=== PATIENT | female | born 1995 | race Caucasian/White ===

== ENCOUNTER 2017-01-01 18:37 | Emergency (ER) | payer MEDICAID, OTHER ==
[~2017-01-01] VITALS: Ht 165.1 cm; Wt 67.4 kg
[2017-01-01 18:51] VITALS: Ht 165.1 cm; Wt 67.4 kg
[2017-01-01] MEDS ORDERED: KETOROLAC 30 MG INJ IM STA (21:21)
[2017-01-01] MEDS ORDERED: NAPR-260 PO (21:24)
[2017-01-01] MEDS ORDERED: CYCL-319 PO (21:24)
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
== END 2017-01-01 21:42 | disposition home or self-care (01) ==
LOC: FTE 18:37
DX: S14.109D Unspecified injury at unspecified level of cervical spinal cord, subsequent encounter (principal); S16.1XXD Strain of muscle, fascia and tendon at neck level, subsequent encounter; W22.8XXD Striking against or struck by other objects, subsequent encounter
CPT/HCPCS: 96372; J1885; Z7502

== ENCOUNTER 2018-02-16 22:45 | Emergency (ER) | payer MEDICAID ==
[~2018-02-16] VITALS: Wt 70.2 kg
[~2018-02-16 22:45] MED LIST: CYCL10TA7 PO; NAPR-985 PO
--- NOTE | 2018-02-16 23:59 | ERD ---
ER Documentation Chief Complaint Chief Complaint BIB SELF, CC: BREAST PAIN, BILATERAL, +DISCHARGE, X 2 MONTHS HPI This is a 22-year-old female presents emergency department with complaints of bilateral breast pain that is on and off for about 2 months. Also stated that sometimes she sees clear discharge. Sexually active with one partner only. Patient is requesting test and ultrasound of the breast. Stating that her mom has history of cancer. LMP: Stated that he was 3 weeks ago. A0. Denies headache, head injury, loss of consciousness, dizziness, neck pain, neck stiffness, throat pain, difficulty swallowing, difficulty breathing lying flat, shoulder pain, chest pain, back pain, abdominal pain, nausea, vomiting, constipation, diarrhea, urinary symptoms, or possibility being , loss of bowel and bladder control, trauma, injury, falls, difficulty walking due to pain, numbness or tingling sensation, calf pain, recent travel, recent major surgery in the last 3 weeks, calf pain, recent long travel, recent exposure to any illness, recent antibiotic use in the last 3 months, fever, chills, seizures. Past medical history: Asthma. Surgical history: Right bunion. Social: Denies smoking, use of alcoholic beverages, use of illegal drugs. ROS All systems reviewed and are negative except as per history of present illness. Medications Home Meds Active Scripts Hydrocodone/Acetaminophen ([place] 5-325 Tablet) 1 Each Tablet, 1 TAB PO Q6H PRN for PAIN, #7 TAB Prov:PASILABAN,ALVINAR F 02/17/18 Ibuprofen* (Motrin*) 800 Mg Tab, 800 MG PO Q6H PRN for PAIN AND OR ELEVATED TEMP, #20 TAB Prov:PASILABAN,ALVINAR F 02/17/18 Cyclobenzaprine Hcl* (Cyclobenzaprine Hcl*) 10 Mg Tablet, 10 MG PO TID, #20 TAB Prov:NANCY TONY PA-C 01/01/17 Naproxen* (Naprosyn*) 500 Mg Tablet, 500 MG PO BID PRN for PAIN AND/OR INFLAMMATION, #30 TAB Prov:NANCY TONY PA-C 01/01/17 Allergies Allergies: Uncoded Allergies: NO KNOWN ALLERGES (Allergy, Mild, 01/22/13) PMhx/Soc History of Surgery: No Anesthesia Reaction: No Hx Neurological Disorder: No Hx Respiratory Disorders: No Hx Cardiac Disorders: No Hx Psychiatric Problems: No Hx Miscellaneous Medical Probl: No Hx Alcohol Use: No Hx Substance Use: No Hx Tobacco Use: No Physical Exam Vitals Vital Signs Date Temp Pulse Resp B/P (MAP) Pulse Ox O2 O2 Flow FiO2 Time Delivery Rate 02/17/18 98.9 86 20 110/66 99 Room Air 02:25 (81) 02/16/18 98.3 81 19 129/64 100 22:47 (85) Physical Exam Const: No acute distress Head: Atraumatic Eyes: Normal Conjunctiva ENT: Normal External Ears, Nose and Mouth. Neck: Full range of motion. No meningismus. Resp: Clear to auscultation bilaterally. Examined with female art handler, Cristiane ZIMMER. Chest area: No vesicular lesions. Bilateral breast: Nipples are intact. No discharge. No bleeding. No swelling/discoloration. Cardio: Regular rate and rhythm, no murmurs Abd: Soft, non tender, non distended. Normal bowel sounds Skin: No petechiae or rashes Back: No midline or flank tenderness Ext: No cyanosis, or edema Neur: Awake and alert Psych: Normal Mood and Affect Results 24 hrs Laboratory Tests Test 02/17/18 00:05 02/17/18 00:33 Urine Color YELLOW Urine Clarity SLIGHTLY CLOUDY Urine pH 7.0 Urine Specific [place] 1.026 Urine Ketones NEGATIVE mg/dL Urine Nitrite NEGATIVE mg/dL Urine Bilirubin NEGATIVE mg/dL Urine Urobilinogen 2+ mg/dL Urine Leukocyte Esterase TRACE Arik/ul Urine Microscopic RBC 1 /HPF Urine Microscopic WBC 2 /HPF Urine Squamous Epithelial Cells FEW /HPF Urine Bacteria FEW /HPF Urine Mucus FEW /HPF Urine Hemoglobin NEGATIVE mg/dL Urine Glucose NEGATIVE mg/dL Urine Total Protein NEGATIVE mg/dl POC Beta HCG, Qualitative NEGATIVE Current Medications Medications Dose Sig/Lee Start Time Status Last (Trade) Ordered Route PRN Stop Time Admin Dose Reason Admin Ibuprofen 800 mg ONCE ONCE 02/17/18 DC (Motrin) PO 02:00 02/17/18 02:04 1 tab ONCE ONCE 02/17/18 DC 02/17/18 Acetaminophen PO 02:30 02:10 / 02/17/18 Hydrocodone 02:30 Bitart ([place] (5/325)) Procedures/MDM Diagnostic tests: POC urine : Negative. Urinalysis: Reviewed. Culture urine: Sent. Breast ultrasound: Mildly dilated ducts bilaterally. Otherwise unremarkable examination. Recommendation: Clinical evaluation and management is recommended. BI-RADS 2 benign. Treatment: Motrin p.o. Re-evaluation: Denies pain. Not in acute respiratory distress. Differential diagnosis I have low suspicion for cellulitis, deep space infection. Final diagnosis: Breast pain. Prescription: Motrin. Follow-up with PCP in the next 24-48 hours. Patient was advised to have her worm farmer do a mammogram. Follow-up with worm farmer in the next 24-48 hours. Come back here in the emergency department for any new symptoms or any worsening symptoms. All questions and concerns were answered. Patient and family members verbalized understanding and agreed with plan of care. Hemodynamically stable on discharge. Departure Diagnosis: Primary Impression: Breast pain Condition: Stable Additional Instructions: Follow-up with PCP in the next 24-48 hours. Patient was advised to have her worm farmer do a mammogram. Follow-up with worm farmer in the next 24-48 hours. Come back here in the emergency department for any new symptoms or any worsening symptoms. HODAN CHARLES Feb 16, 2018 23:59
[2018-02-17] MEDS ORDERED: IBUPROFEN 800 MG TAB PO ONE (02:00)
[2018-02-17] MEDS ORDERED: IBUP800T48 PO (02:01)
[2018-02-17] MEDS ORDERED: HYDR-4011 PO (02:04)
[2018-02-17 02:25] VITALS: BP 110/66; PULSE 86; RESP 20
[2018-02-17] MEDS ORDERED: HYDROCODONE/APAP (5/325) TAB PO ONE (02:30)
== END 2018-02-17 02:27 | disposition home or self-care (01) ==
LOC: FTE 22:45
DX: N64.4 Mastodynia (principal); J45.909 Unspecified asthma, uncomplicated
CPT/HCPCS: 76641; 81001; 81025; 87086; Z7502; Z7610

== ENCOUNTER 2018-03-29 15:44 | Emergency (ER) | payer MEDICAID ==
[~2018-03-29] VITALS: Ht 160 cm; Wt 62.0 kg
[~2018-03-29 15:44] MED LIST changes: +HYDR-4011 PO; +IBUP800T48 PO
[2018-03-29 15:51] VITALS: Ht 160 cm; Wt 62.0 kg
[2018-03-29] MEDS ORDERED: ACETAMINOPHEN 325 MG TAB PO STA (16:37)
[2018-03-29] MEDS ORDERED: ACET325T33 PO (18:07)
[2018-03-29 18:32] VITALS: BP 115/62; PULSE 77; RESP 18
--- NOTE | 2018-03-30 21:46 | ERD ---
ER Documentation Chief Complaint Chief Complaint 10 weeks having cramping and abdoinal pain HPI 22-year-old female with no significant past medical history who is , last menstrual cycle of 02/02/2018 presenting to the emergency department complaining of bilateral suprapubic cramping for the past 3 days. Pain is rated 7/10 in severity. She tried no medication for relief of symptoms. She denies any vaginal bleeding. Her TANK SETTER HELPER physician is Dr. Springer. No other symptoms reported at this time. ROS All systems reviewed and are negative except as per history of present illness. Medications Home Meds Active Scripts Acetaminophen* (Tylenol*) 325 Mg Tablet, 2 TAB PO Q6 PRN for PAIN AND OR ELEVATED TEMP, #20 TAB Prov:TERRANCE GRAY PA-C 03/29/18 Hydrocodone/Acetaminophen ([place] 5-325 Tablet) 1 Each Tablet, 1 TAB PO Q6H PRN for PAIN, #7 TAB Prov:PASILABAN,ALVINAR F 02/17/18 Ibuprofen* (Motrin*) 800 Mg Tab, 800 MG PO Q6H PRN for PAIN AND OR ELEVATED TEMP, #20 TAB Prov:PASILABAN,KLAR F 02/17/18 Cyclobenzaprine Hcl* (Cyclobenzaprine Hcl*) 10 Mg Tablet, 10 MG PO TID, #20 TAB Prov:NANCY TONY PA-C 01/01/17 Naproxen* (Naprosyn*) 500 Mg Tablet, 500 MG PO BID PRN for PAIN AND/OR INFLAMMATION, #30 TAB Prov:NANCY TONY PA-C 01/01/17 Allergies Allergies: Uncoded Allergies: NO KNOWN ALLERGES (Allergy, Mild, 01/22/13) PMhx/Soc Medical and Surgical Hx: pt denies Medical Hx, pt denies Surgical Hx History of Surgery: No Anesthesia Reaction: No Hx Neurological Disorder: No Hx Respiratory Disorders: No Hx Cardiac Disorders: No Hx Psychiatric Problems: No Hx Miscellaneous Medical Probl: No Hx Alcohol Use: No Hx Substance Use: No Hx Tobacco Use: No Smoking Status: Never smoker FmHx Family History: No diabetes Physical Exam Vitals Vital Signs Date Temp Pulse Resp B/P (MAP) Pulse Ox O2 O2 Flow FiO2 Time Delivery Rate 03/29/18 98.0 77 18 115/62 99 Room Air 18:32 (79) 03/29/18 97.8 95 18 110/63 99 15:51 (79) Physical Exam Const: No acute distress Head: Atraumatic Eyes: Normal Conjunctiva ENT: Normal External Ears, Nose and Mouth. Neck: Full range of motion. No meningismus. Resp: Clear to auscultation bilaterally Cardio: Regular rate and rhythm, no murmurs Abd: Soft, non tender, non distended. Normal bowel sounds. Mild tenderness palpation of the bilateral suprapubic region. No rebound tenderness or guarding. No McBurney's point tenderness. Skin: No petechiae or rashes Back: No midline or flank tenderness Ext: No cyanosis, or edema Neur: Awake and alert Psych: Normal Mood and Affect Result Diagram: 03/29/181644 Results 24 hrs Laboratory Tests Test 03/29/18 16:34 03/29/18 16:35 03/29/18 16:45 Bedside Urine pH (LAB) 7.0 Bedside Urine Protein (LAB) Trace Bedside Urine Glucose (UA) Negative Bedside Urine Ketones (LAB) Negative Bedside Urine Blood Negative Bedside Urine Nitrite (LAB) Negative Bedside Urine Leukocyte Esterase (L Negative POC Beta HCG, Qualitative POSITIVE White Blood Count 6.6 10^3/ul Red Blood Count 4.56 10^6/ul Hemoglobin 13.7 g/dl Hematocrit 40.4 % Mean Corpuscular Volume 88.6 fl Mean Corpuscular Hemoglobin 30.0 pg Mean Corpuscular Hemoglobin Concent 33.9 g/dl Red Cell Distribution Width 11.7 % Platelet Count 296 10^3/UL Mean Platelet Volume 9.0 fl Immature Granulocytes % 0.500 % Neutrophils % 56.0 % Lymphocytes % 29.7 % Monocytes % 5.0 % Eosinophils % 8.3 % Basophils % 0.5 % Nucleated Red Blood Cells % 0.0 /100WBC Immature Granulocytes # 0.030 10^3/ul Neutrophils # 3.7 10^3/ul Lymphocytes # 2.0 10^3/ul Monocytes # 0.3 10^3/ul Eosinophils # 0.6 10^3/ul Basophils # 0.0 10^3/ul Nucleated Red Blood Cells # 0.0 10^3/ul Urine Color YELLOW Urine Clarity CLEAR Urine pH 6.0 Urine Specific [place] 1.025 Urine Ketones NEGATIVE mg/dL Urine Nitrite NEGATIVE mg/dL Urine Bilirubin NEGATIVE mg/dL Urine Urobilinogen NEGATIVE mg/dL Urine Leukocyte Esterase NEGATIVE Arik/ul Urine Hemoglobin NEGATIVE mg/dL Urine Glucose NEGATIVE mg/dL Urine Total Protein NEGATIVE mg/dl Beta HCG, Quantitative 4060.3 mIU/ml Current Medications Medications Dose Sig/Lee Start Time Status Last (Trade) Ordered Route PRN Stop Time Admin Dose Reason Admin 650 mg ONCE STAT 03/29/18 DC 03/29/18 Acetaminophen PO 16:37 03/29/18 16:49 (Tylenol 16:38 Tab) [place] [address] Radiology Main Line: [phone] DIAGNOSTIC IMAGING REPORT Patient: JORGE VALDEZ : 1995 Age: 22 Sex: F MR #: [id number] DOS: 03/29/18 1637 Ordering MD: TERRANCE GRAY PA-C Location: [facility] Room/Bed: PROCEDURE: US OB 1st trimester CLINICAL INDICATION: pelvic pain TECHNIQUE: Transabdominal and transvaginal views of the pelvis are available for review. COMPARISON: No prior studies are available for comparison. FINDINGS: The uterus measures 8.5 x 3.8 cm. An oval fluid collection is identified appropriately positioned within the uterus. There is an embryo present. There is a yolk sac identified. The crown-rump length measures 0.2 cm, corresponding to a gestational age of 5 weeks and 3 days. The heart rate is not identified. There is no subchorionic hemorrhage identified. The ovaries are normal in size and echogenicity with normal Doppler flow in bot h. The right ovary measures 3.0 x 1.7 x 2.6 cm. The left ovary measures 3.1 x 1.9 x 3.8 cm. No adnexal masses. There is no free fluid. IMPRESSION: Intrauterine of uncertain viability. Recommend repeat ultrasound in two weeks. RPTAT: AA Physician Layne Date Time Electronically viewed and signed by Physician Layne on 03/29/2018 17:38 RB/ CC: TERRANCE GRAY PA-C [id number] Procedures/MDM 22-year-old female presenting to the emergency department complaining of bilateral suprapubic pain. She is approximately 5 weeks . Ultrasound showed an intrauterine of uncertain viability. The full report interpreted by the radiologist may be viewed above. Patient's beta hCG was 4060. Patient was administered Tylenol in the department with good response. Patient was informed of all results in the department and she understood and agreed with the diagnosis, plan, need for follow-up, return precautions. I did explicitly advised the patient that she will need follow-up within the next 48 hours here or with her TANK SETTER HELPER physician for repeat testing. She demonstrated good understanding. Her questions and concerns were addressed prior to discharge. Patient should return to the department immediately for any new or worsening or concerning symptoms. Departure Diagnosis: Primary Impression: Pelvic pain affecting Trimester: first trimester Qualified Codes: O26.891 - Other specified related conditions, first trimester; R10.2 - Pelvic and perineal pain Condition: Fair Patient Instructions: Possible Miscarriage (Threatened ) Referrals: [facility] YOU HAVE RECEIVED A MEDICAL SCREENING EXAM AND THE RESULTS INDICATE THAT YOU DO NOT HAVE A CONDITION THAT REQUIRES URGENT TREATMENT IN THE EMERGENCY DEPARTMENT. FURTHER EVALUATION AND TREATMENT OF YOUR CONDITION CAN WAIT UNTIL YOU ARE SEEN IN YOUR DOCTORS OFFICE WITHIN THE NEXT 1-2 DAYS. IT IS YOUR RESPONSIBILITY TO MAKE AN APPOINTMENT FOR FOLOW-UP CARE. IF YOU HAVE A PRIMARY DOCTOR --you should call your primary doctor and schedule an appointment IF YOU DO NOT HAVE A PRIMARY DOCTOR YOU CAN CALL OUR PHYSICIAN REFERRAL HOTLINE AT IF YOU CAN NOT AFFORD TO SEE A PHYSICIAN YOU CAN CHOSE FROM THE FOLLOWING [facility] [address] [facility] [address] [facility]. [facility] [address] [facility] [address] [facility] [address] [facility] [facility] [address] TANK SETTER HELPER [place] [address] [facility] [address] [place] [address]USLEME [address]IM [address] [place] [address] [address] [address] [place] [address] [address], [facility] [address] [facility], [address] [address] [address] [facility] [address] [place] [address] [facility] [address] [place] [address] [phone] [facility] [id number] - [place] [place] [address] [facility]. [address], [facility] [address] [address], [facility] [address] [facility]. [address], [facility] [address] [address] [address] [place] [address] Additional Instructions: Call your primary care doctor TOMORROW for an appointment during the next 1-2 days.See the doctor sooner or return here if your condition worsens before your appointment time. SPECIALIST: YOU HAVE A MEDICAL CONDITION WHICH REQUIRES YOU TO SEE A SPECIALIST WITHIN THE NEXT 1-2 DAYS. PLEASE FOLLOW UP WITH YOUR PRIMARY PHYSICIAN FOR REFFERAL.IF YOU DO NOT HAVE A PRIMARY CARE PHYSICIAN AND/OR YOU CAN NOT AFFORD TO SEE A PHYSICIAN THE FOLLOWING RESOURCES HAVE BEEN SUPPLIED TO YOU. IT IS YOUR RESPONSIBILITY TO BE SEEN BY THE SPECIALIST: TERRANCE MCCARTY PA-C Mar 30, 2018 21:46
== END 2018-03-29 18:33 | disposition home or self-care (01) ==
LOC: FTE 15:44
DX: O26.891 Other specified pregnancy related conditions, first trimester (principal); R10.2 Pelvic and perineal pain; Z3A.01 Less than 8 weeks gestation of pregnancy
CPT/HCPCS: 36415; 76801; 76817; 81003; 81025; 84702; 85025; 86900; 86901; Z7502; Z7610